=== PATIENT | male | born 1980 | race African-American/Black ===

== ENCOUNTER 2017-07-09 12:11 | Emergency (ER) | payer SELFPAY ==
[2017-07-09 12:13] VITALS: BP 158/99; PULSE 74; RESP 14; TEMP 98.2; O2SAT 98
--- NOTE | 2017-07-09 15:10 | RADRPT ---
EXAM DATE/TIME: 07/09/2017 13:51 [place] COMPARISON: No previous studies available for comparison. INDICATIONS : Pain post fall. MEDICAL HISTORY : None. SURGICAL HISTORY : None. ENCOUNTER: Initial ACUITY: 1 day PAIN SCORE: 7/10 LOCATION: Right Wrist. FINDINGS: Two view examination of the right wrist demonstrates no soft tissue swelling, dislocation, or fractur e. The joint spaces are maintained. Bony mineralization is normal. Old fracture the fifth metacarp al is present CONCLUSION: 1. Negative examination of the wrist. Henok Gaspar MD on July 09, 2017 at 15:08 Board Certified Radiologist. This report was verified electronically.
--- NOTE | 2017-07-09 16:07 | PD ---
HPI Chief Complaint: Injury Time Seen by Provider: 15:26 Travel History International Travel<30 days: No Contact w/Intl Traveler<30days: No Traveled to known affect area: No Allergies-Medications (Allergen,Severity, Reaction): Coded Allergies: No Known Allergies (Unverified , 07/09/17) Data Data Last Documented VS Vital Signs Date Time Temp Pulse Resp B/P (MAP) Pulse Ox O2 Delivery O2 Flow Rate FiO2 07/09/17 12:13 98.2 74 14 158/99 (118) 98 Orders Orders Wrist, Limited (Ap&Lat) (07/09/17 ) Splint Or Brace Apply/Monitor (07/09/17 16:02) MDM Medical Decision Making Medical Screen Exam Complete: Yes Emergency Medical Condition: Yes Differential Diagnosis Wrist sprain versus strain versus fracture versus dislocation Narrative Course 36-year-old male with right wrist pain status post hyper flexion injury while playing basketball yesterday. Pain reports pain and swelling within the wrist. He denies paresthesia or weakness. Pain is constant, nonradiating. Severity 6/10. Slightly alleviated with rest. On exam patient has moderate swelling to the generalized rest. 2+ radial and ulnar pulse. Normal sensation. Limited flexion and extension due to pain. X-rays negative for fracture. Patient will be splinted in a Velcro wrist splint. Ice, elevate, NSAIDs as needed for pain. Follow up with PCP Diagnosis Primary Impression: Wrist sprain Qualified Codes: S63.501A - Unspecified sprain of right wrist, initial encounter Referrals: [facility] Additional Instructions: Ice and elevate the extremity. Take [id number] Motrin 600-800 mg every 6-8 hours as needed for pain Use the wrist splint until wrist swelling has decreased. Follow-up with the [facility]. Return to emergency department if he had new or worsening symptoms Disposition: 01 DISCHARGE HOME Condition: Stable Rochelle Farley Jul 09, 2017 16:07
== END 2017-07-09 16:45 | disposition home or self-care (01) ==
LOC: NEPD 12:11
DX: S63.501A Unspecified sprain of right wrist, initial encounter (principal); X50.9XXA Other and unspecified overexertion or strenuous movements or postures, initial encounter; Y93.67 Activity, basketball
CPT/HCPCS: 73100; 99283; L3908